=== PATIENT | female | born 1970 | race Two or more races ===

== ENCOUNTER 2016-07-06 06:03 | Day surgery (SDC) | payer OTHER ==
[2016-07-06] MEDS ORDERED: CEFAZOLIN SODIUM/DEXTROSE,ISO 50 ML IV ONE (07:13)
[2016-07-06] MEDS ORDERED: BACITRACIN 50000 UNITS/VIAL ONE (07:24)
[2016-07-06] MEDS ORDERED: MIDAZOLAM HCL 2 MG/2ML VIAL ONE (07:31)
[2016-07-06] MEDS ORDERED: FENTANYL PF 100MCG/2ML AMPUL ONE (07:31)
[2016-07-06] MEDS ORDERED: FAMOTIDINE/PF INJ 20 MG/2 ML VIAL IV ONE ×2 (07:55→07:56)
[2016-07-06] MEDS ORDERED: BUPIVACAINE 0.5 % PF 150 MG/30 ML VIAL ONE (07:59)
[2016-07-06] MEDS ORDERED: PROMETHAZINE HCL 25 MG/ML AMPUL ONE (09:06)
== END 2016-07-06 11:05 | disposition home or self-care (01) ==
LOC: DS 06:03
PROVIDERS: ATTEND Student in an Organized Health Care Education/Training Program
DX: M77.12 Lateral epicondylitis, left elbow (principal); I25.2 Old myocardial infarction; K21.9 Gastro-esophageal reflux disease without esophagitis
CPT/HCPCS: 24359; 71010; 84703; 93005; A6402 ×2; J0690; J1100; J1885; J2250; J2405; J2550; J2704; J3010; J3490 ×4; Z7610; 88304-TC; 88305-TC